=== PATIENT | female | born 1945 | race Caucasian/White ===

== ENCOUNTER → 2016-08-30 | Day surgery (SDC) | payer MEDICARE, BC ==
[~2016-08-30] VITALS: Ht 162.6 cm; Wt 68.9 kg
[~2016-08-30] MED LIST: ACETAMINOPHEN 325 MG TAB PO PRN; ACETAMINOPHEN TAB 650MG DOSE (2X325MG) PO PRN; ACETYLCHOLINE OPHTH SOLN 1% 2ML As Ordered ONE; ANUS2.5C2 PR; AcetaZOLAMIDE 500 MG ER CAP PO ONE; BALANCED SALT IRRIGATION SOLUTION 500ML BAG (FOR OR EYE MACHINE) As Ordered ONE; BSS with VANC/TOB/EPI for EYE CASES IR ONE; CEFUROXIME 1MG/0.1ML INTRACAMERAL INJ As Ordered ONE; CYCLOPENTOLATE 2% OPHTH SOLN As Ordered ONE; CYCLOPENTOLATE 2% OPHTH SOLN OD ONE; D5W/0.2% SODIUM CHLORIDE 250 ML IV SCH; D5W/0.9% SODIUM CHLORIDE 1,000 ML IV SCH; DRIS50002 PO; HEALON DUET (HEALON 10MG/ML 0.55ML & HEALON ENDOCOAT 30MG/ML 0.85ML) As Ordered ONE; KETOROLAC 0.5% OPHTH SOLN XX ONE; LIDOCAINE 1% SDV 5 ML VIAL As Ordered ONE; LIDOCAINE 4% INJ 5 ML AMP OU ONE; LISI-538 PO; LISI10TA2 PO; MIDAZOLAM INJ 2 MG/2 ML VIAL (J2250) As Ordered ONE; OFLOXACIN 0.3 % (OCUFLOX) OPTH SOL 5ML As Ordered ONE; OFLOXACIN 0.3 % (OCUFLOX) OPTH SOL 5ML OD ONE; ONDANSETRON 4MG/2ML VIAL (J2405) IV PRN; PHENYLEPHRINE 2.5% OPHTH SOL 2ML As Ordered ONE; PHENYLEPHRINE 2.5% OPHTH SOL 2ML OD ONE; POVIDONE-IODINE 5% OPHTH PREP SOL 30ML As Ordered ONE; PRAV40TA2 PO; PREV10CA PO; PROPARACAINE 0.5% OPHTH SOL 15ML XX PRN; TRIMETHOBENZAMIDE 300 MG CAP PO PRN; TROPICAMIDE 1% OPHTH SOLN 2 ML As Ordered ONE; TROPICAMIDE 1% OPHTH SOLN 2 ML OD ONE; VITA-121 PO; VITA200T4 PO; fentaNYL 100 MCG/2 ML INJECTION (J3010) As Ordered ONE
[2016-08-30 11:10] VITALS: BP 136/74
--- NOTE | 2016-08-31 07:53 | RO ---
DATE OF PROCEDURE: 08/30/2016 PREOPERATIVE DIAGNOSIS: Age-related nuclear cataract right eye. POSTPROCEDURE DIAGNOSIS: Age-related nuclear cataract right eye. PROCEDURE: Phacoemulsification and posterior chamber intraocular lens implantation. Lens used is a AU00T0 13.0 diopter. SURGEON: Elaine Roach MD SOLE LEATHER CUTTING MACHINE OPERATOR: ANESTHESIA: Topical with sedation. DESCRIPTION OF PROCEDURE: The patient was prepped and draped in the usual fashion. A lid speculum was placed between the lids. The eye was fixated. A stab incision was made to the anterior chamber, and 1% nonpreserved Lidocaine was instilled. Then, viscoelastic was instilled. The eye was refixated. A 2.75 mm sapphire keratome was used to make a clear corneal temporal limbal incision. Capsulorrhexis was begun with a 30-gauge bent needle and then carried out in a circular fashion with capsulorrhexis forceps. The lens was hydrodissected, and then the phacoemulsification unit was used to make a groove in the nucleus and two meridians. The nucleus was then cracked into four quadrants. Each quadrant was removed with the phacoemulsification unit. Any remaining cortex was removed with the I+A unit. Capsular bag was refilled with viscoelastic. A posterior chamber intraocular lens was placed in the capsular bag without difficulty. Any remaining viscoelastic was removed with the I+A unit. The wound was hydrated, and Miochol and cefuroxime were instilled into the anterior chamber. The patient tolerated the procedure well and went to the recovery room in stable condition.
== END | disposition home or self-care (01) ==
LOC: M SDC 09:39
PROVIDERS: ATTEND Ophthalmology
DX: H25.11 Age-related nuclear cataract, right eye (principal); I10 Essential (primary) hypertension; E78.5 Hyperlipidemia, unspecified; Z79.899 Other long term (current) drug therapy
CPT/HCPCS: 66984; J2250; J3010; V2632

== ENCOUNTER → 2016-09-06 | Day surgery (SDC) | payer MEDICARE, BC ==
[~2016-09-06] VITALS: Ht 162.6 cm; Wt 68.9 kg
[~2016-09-06] MED LIST changes: -ACETAMINOPHEN TAB 650MG DOSE (2X325MG) PO PRN; -BSS with VANC/TOB/EPI for EYE CASES IR ONE; -CYCLOPENTOLATE 2% OPHTH SOLN As Ordered ONE; -CYCLOPENTOLATE 2% OPHTH SOLN OD ONE; +CYCLOPENTOLATE 2% OPHTH SOLN OS ONE; -D5W/0.9% SODIUM CHLORIDE 1,000 ML IV SCH; +KETOROLAC 0.5% OPHTH SOLN OS ONE; -KETOROLAC 0.5% OPHTH SOLN XX ONE; +LR 1,000 ML IV SCH; -OFLOXACIN 0.3 % (OCUFLOX) OPTH SOL 5ML As Ordered ONE; -OFLOXACIN 0.3 % (OCUFLOX) OPTH SOL 5ML OD ONE; +OFLOXACIN 0.3 % (OCUFLOX) OPTH SOL 5ML OS ONE; -ONDANSETRON 4MG/2ML VIAL (J2405) IV PRN; -PHENYLEPHRINE 2.5% OPHTH SOL 2ML As Ordered ONE; -PHENYLEPHRINE 2.5% OPHTH SOL 2ML OD ONE; +PHENYLEPHRINE 2.5% OPHTH SOL 2ML OS ONE; +PROPARACAINE 0.5% OPHTH SOL 15ML OS PRN; -PROPARACAINE 0.5% OPHTH SOL 15ML XX PRN; -TROPICAMIDE 1% OPHTH SOLN 2 ML As Ordered ONE; -TROPICAMIDE 1% OPHTH SOLN 2 ML OD ONE; +TROPICAMIDE 1% OPHTH SOLN 2 ML OS ONE
[2016-09-06 11:00] VITALS: BP 135/73
--- NOTE | 2016-09-06 16:47 | RO ---
DATE OF PROCEDURE: 09/06/2016 PREPROCEDURE DIAGNOSIS: Age-related nuclear cataract left eye. POSTPROCEDURE DIAGNOSIS: Age-related nuclear cataract left eye. OPERATIVE PROCEDURE: Phacoemulsification and posterior chamber intraocular lens implantation left eye. The lens used was AU00-T0, 12.0 diopter. SURGEON: Elaine Roach MD DEBURRER MACHINE: ANESTHESIA: Topical with sedation. DESCRIPTION OF PROCEDURE: The patient was prepped and draped in the usual fashion. A lid speculum was placed between the lids. The eye was fixated. A stab incision was made to the anterior chamber, and 1% non-preserved lidocaine was instilled. Then, viscoelastic was instilled. The eye was re-fixated. A 2.75 mm sapphire keratome was used to make a clear corneal temporal limbal incision. Capsulorrhexis was begun with a 30-gauge bent needle and then carried out in a circular fashion with capsulorrhexis forceps. The lens was hydrodissected, and then the phacoemulsification unit was used to make a groove in the nucleus in two meridians. The nucleus was then cracked into four quadrants. Each quadrant was removed with the phacoemulsification unit. Any remaining cortex was removed with the irrigation and aspiration (I and A) unit. Capsular bag was refilled with viscoelastic. A posterior chamber intraocular lens was placed in the capsular bag without difficulty. Any remaining viscoelastic was removed with the I and A unit. The wound was hydrated, and Miochol and cefuroxime were instilled into the anterior chamber. The patient tolerated the procedure well and went to the recovery room in stable condition.
== END | disposition home or self-care (01) ==
LOC: M SDC 08:54
PROVIDERS: ATTEND Ophthalmology
DX: H25.12 Age-related nuclear cataract, left eye (principal); I10 Essential (primary) hypertension; E78.5 Hyperlipidemia, unspecified; Z79.899 Other long term (current) drug therapy
CPT/HCPCS: 66984; J2250; J3010; V2632

== ENCOUNTER → 2016-10-23 | Outpatient (REF) | payer MEDICARE, BC ==
[~2016-10-23] MED LIST changes: -ACETAMINOPHEN 325 MG TAB PO PRN; -ACETYLCHOLINE OPHTH SOLN 1% 2ML As Ordered ONE; -AcetaZOLAMIDE 500 MG ER CAP PO ONE; -BALANCED SALT IRRIGATION SOLUTION 500ML BAG (FOR OR EYE MACHINE) As Ordered ONE; -CEFUROXIME 1MG/0.1ML INTRACAMERAL INJ As Ordered ONE; -CYCLOPENTOLATE 2% OPHTH SOLN OS ONE; -D5W/0.2% SODIUM CHLORIDE 250 ML IV SCH; -HEALON DUET (HEALON 10MG/ML 0.55ML & HEALON ENDOCOAT 30MG/ML 0.85ML) As Ordered ONE; -KETOROLAC 0.5% OPHTH SOLN OS ONE; -LIDOCAINE 1% SDV 5 ML VIAL As Ordered ONE; -LIDOCAINE 4% INJ 5 ML AMP OU ONE; -LR 1,000 ML IV SCH; -MIDAZOLAM INJ 2 MG/2 ML VIAL (J2250) As Ordered ONE; -OFLOXACIN 0.3 % (OCUFLOX) OPTH SOL 5ML OS ONE; -PHENYLEPHRINE 2.5% OPHTH SOL 2ML OS ONE; -POVIDONE-IODINE 5% OPHTH PREP SOL 30ML As Ordered ONE; -PROPARACAINE 0.5% OPHTH SOL 15ML OS PRN; -TRIMETHOBENZAMIDE 300 MG CAP PO PRN; -TROPICAMIDE 1% OPHTH SOLN 2 ML OS ONE; -fentaNYL 100 MCG/2 ML INJECTION (J3010) As Ordered ONE
[2016-10-23 11:59] LABS: MEAN CORPUSCULAR HEMOGLOBIN 29.3 pg (27.0-33.0); MEAN CORPUSCULAR HGB CONC 32.5 g/dl (32.0-36.5); WHITE BLOOD COUNT 5.1 K/mm3 (4.0-10.0)
[2016-10-23 12:17] LABS: ALBUMIN 3.9 GM/DL (3.2-5.2); ALKALINE PHOSPHATASE 63 U/L (45-117); ALT/SGPT 22 U/L (12-78); ANION GAP 6 MEQ/L (8-16); AST/SGOT 17 U/L (15-37); BILIRUBIN,TOTAL 0.5 MG/DL (0.2-1.0); BLOOD UREA NITROGEN 19 MG/DL (7-18); CALCIUM LEVEL 8.3 MG/DL (8.8-10.2); CARBON DIOXIDE LEVEL 31 MEQ/L (21-32); CHLORIDE LEVEL 106 MEQ/L (98-107); CHOLESTEROL LEVEL 221 MG/DL (<200); GLOMERULAR FILTRATION RATE > 60.0 (>45); GLUCOSE, FASTING 94 MG/DL (80-110); POTASSIUM SERUM 3.9 MEQ/L (3.5-5.1); SODIUM LEVEL 143 MEQ/L (136-145); TOTAL PROTEIN 6.9 GM/DL (6.4-8.2); TRIGLYCERIDES LEVEL 125 MG/DL (<150)
== END ==
LOC: M SFHCCLAY 08:29
PROVIDERS: ATTEND Nurse Practitioner Family
DX: I10 Essential (primary) hypertension (principal); E78.4 Other hyperlipidemia; E55.9 Vitamin D deficiency, unspecified

== ENCOUNTER → 2017-04-09 | Outpatient (REF) | payer MEDICARE, BC ==
[2017-04-09 12:43] LABS: CALCIUM LEVEL 8.6 MG/DL (8.8-10.2)
== END ==
LOC: M SFHCCLAY 09:02
PROVIDERS: ATTEND Nurse Practitioner Family
DX: E55.9 Vitamin D deficiency, unspecified (principal); I10 Essential (primary) hypertension; E78.4 Other hyperlipidemia

== ENCOUNTER → 2018-03-29 | Outpatient (CLI) | payer MEDICARE, BC | LOC: M CLY 10:28 | DX: R05 Cough (principal) | CPT/HCPCS: 71046 ==

== ENCOUNTER → 2018-07-24 | Outpatient (REF) | payer MEDICARE, BC ==
[~2018-07-24] MED LIST changes: -DRIS50002 PO; +DRIS50003 PO
[2018-07-24 11:40] LABS: HEMATOCRIT 34.6 % (36.0-47.0); HEMOGLOBIN 10.8 g/dl (12.0-15.5); MEAN CORPUSCULAR HEMOGLOBIN 26.7 pg (27.0-33.0); MEAN CORPUSCULAR HGB CONC 31.2 g/dl (32.0-36.5); MEAN CORPUSCULAR VOLUME 85.6 fl (80.0-96.0); PLATELET COUNT, AUTOMATED 288 10^3/uL (150-450); RED BLOOD COUNT 4.04 10^6/uL (4.00-5.40); WHITE BLOOD COUNT 5.3 10^3/uL (4.0-10.0)
[2018-07-24 11:48] LABS: ALBUMIN 3.9 GM/DL (3.2-5.2); ALT/SGPT 18 U/L (12-78); BILIRUBIN,TOTAL 0.2 MG/DL (0.2-1.0); BLOOD UREA NITROGEN 16 MG/DL (7-18); CALCIUM LEVEL 8.4 MG/DL (8.8-10.2); CARBON DIOXIDE LEVEL 28 MEQ/L (21-32); CHLORIDE LEVEL 109 MEQ/L (98-107); CHOLESTEROL LEVEL 248 MG/DL (<200); CHOLESTEROL RISK RATIO 4.133 (<5); CREATININE FOR GFR 0.82 MG/DL (0.55-1.30); GLOMERULAR FILTRATION RATE > 60.0 (>39); GLUCOSE, FASTING 97 MG/DL (70-100); HDL CHOLESTEROL 60 MG/DL (>40); LDL CHOLESTEROL 160 MG/DL (<100); NON-HDL-C 188 MG/DL; POTASSIUM SERUM 3.9 MEQ/L (3.5-5.1); SODIUM LEVEL 144 MEQ/L (136-145); TOTAL PROTEIN 6.7 GM/DL (6.4-8.2); TRIGLYCERIDES LEVEL 138 MG/DL (<150)
[2018-07-24 11:56] LABS: TOTAL 25(OH) VITAMIN D 21.1 NG/ML (30.0-100.0)
== END ==
LOC: M SFHCCLAY 08:25
PROVIDERS: ATTEND Nurse Practitioner Family
DX: I10 Essential (primary) hypertension (principal); E78.49 Other hyperlipidemia; E55.9 Vitamin D deficiency, unspecified; Z79.899 Other long term (current) drug therapy

== ENCOUNTER → 2018-09-19 | Outpatient (REF) | payer MEDICARE, BC | LOC: M SFHCWAGY 14:06 | PROVIDERS: ATTEND Nurse Practitioner Family | DX: Z12.4 Encounter for screening for malignant neoplasm of cervix (principal) ==

== ENCOUNTER → 2018-09-24 | Outpatient (CLI) | payer MEDICARE, BC ==
[~2018-09-24] MED LIST changes: +E-Z-GAS II EFFERVESCENT PACKET (SODIUM BICARB./CITRIC ACID/SIMETHICONE) As Ordered ONE; +E-Z-HD 98% w/w 340GM SUSP BTL As Ordered ONE; +E-Z-PAQUE 96% w/w SUSP 176GM BTL As Ordered ONE
--- NOTE | 2018-09-24 20:28 | REP ---
Esophagram The procedure was performed under the direct supervision of Dr. Yanez. The images were reviewed with Dr. Yanez. A single view PA chest x-ray is submitted as a weatherization coordinator film. The superior mediastinal structures are midline. The heart size is within normal limits. The lungs are clear. Liquid barium and gas producing granules were given in the erect position as well as liquid barium in the prone oblique positions in order to perform a double contrast esophagram examination. The oral and pharyngeal stages of deglutition are unremarkable. Note is made of degenerative disc disease in the cervical spine. During esophageal transport there are tertiary waves demonstrated. There is no esophagitis stricture mucosal ring or hiatal hernia. There is gastroesophageal reflux demonstrated to above the level of the basilio. Impression: There are tertiary waves demonstrated. There is gastroesophageal reflux demonstrated to above the level of the basilio. 0.6 minutes of fluoro time was utilized for this procedure. Reviewed by PAIGE Barrett 09/24/2018 03:49 P Electronically Signed by Eulalio Yanez MD 09/24/2018 08:19 P
== END ==
LOC: M RAD 08:33
PROVIDERS: ATTEND Otolaryngology
DX: R05 Cough (principal)

== ENCOUNTER → 2018-10-10 | Outpatient (CLI) | payer MEDICARE, BC ==
[~2018-10-10] MED LIST changes: -E-Z-GAS II EFFERVESCENT PACKET (SODIUM BICARB./CITRIC ACID/SIMETHICONE) As Ordered ONE; -E-Z-HD 98% w/w 340GM SUSP BTL As Ordered ONE; -E-Z-PAQUE 96% w/w SUSP 176GM BTL As Ordered ONE
--- NOTE | 2018-10-10 13:36 | REPMRS ---
Patient History The patient states she has not had a clinical breast exam in over a year. Patient is postmenopausal and had first child at age 42. Family history of unknown cancer in brother. Benign excisional biopsy of the left breast, 2002. Reductions of both breasts, 1997. 3D TOMOSYNTHESIS WAS PERFORMED. Digital Woman Screen Mammo: October 10, 2018 - Exam #: [id number] Bilateral CC and MLO view(s) were taken. Technologist: Sera Gomez, Technologist Prior study comparison: March 15, 2016, bilateral digital mammo screening bilat, performed at [facility]. January 01, 2013, digital woman screen mammo performed at [facility]. FINDINGS: The breast tissue is heterogeneously dense. This may lower the sensitivity of mammography. There has been no change in the appearance of the mammogram from the prior studies. There is a moderate amount of residual fibroglandular tissue which is fairly symmetric. There is no interval development of dominant mass, areas of architectural distortion, or clustered microcalcification typical of malignancy. Assessment: BI-RADS/ACR category 1 mammogram. Negative Mammogram. Recommendation Routine screening mammogram in 1 year (for women over age 40). This mammogram was interpreted with the aid of an FDA-approved computer-aided dectection system. Electronically Signed By: Tommy Juan MD 10/10/18 [id number]
== END ==
LOC: M WHC 12:29
PROVIDERS: ATTEND Nurse Practitioner Family
DX: Z12.31 Encounter for screening mammogram for malignant neoplasm of breast (principal); Z78.0 Asymptomatic menopausal state; Z80.9 Family history of malignant neoplasm, unspecified

== ENCOUNTER 2019-01-17 10:22 | Day surgery (SDC) | payer MEDICARE, BC ==
[~2019-01-17] VITALS: Ht 167.6 cm; Wt 81.1 kg
[~2019-01-17 10:22] MED LIST changes: +B-122500 PO; +IRON27TA2 PO; +LISI10TA15 PO; -LISI10TA2 PO; +NS 1,000 ML IV ONE; +OMEP40CA97 PO; +TYLETAB14 PO
[2019-01-17] MEDS ORDERED: LIDOCAINE 2% INJ 100 MG/5 ML SDV (FOR ANES.) As Ordered ONE (10:37)
[2019-01-17] MEDS ORDERED: propofoL 200 MG/20 ML VIAL As Ordered ONE (10:37)
[2019-01-17] MEDS ORDERED: fentaNYL 100 MCG/2 ML INJECTION (J3010) As Ordered ONE (11:43)
--- NOTE | 2019-01-17 11:59 | ROOR ---
Patient Name: Lazara Disla Procedure Date: 01/17/2019 11:44 AM Date of : 1945 Age: 73 Room: [facility] Gender: Female Note Status: Finalized Procedure: Upper GI endoscopy Indications: Exclusion of esophageal reflux, Chronic cough Providers: Yoel BREEN MD Referring MD: Mag Das NP Requesting Provider: Medicines: Monitored Anesthesia Care Complications: No immediate complications. Procedure: Pre-Anesthesia Assessment: - The heart rate, respiratory rate, oxygen saturations, blood pressure, adequacy of pulmonary ventilation, and response to care were monitored throughout the procedure. The Endoscope was introduced through the mouth, and advanced to the second part of duodenum. The upper GI endoscopy was accomplished without difficulty. The patient tolerated the procedure well. Findings: The examined esophagus was normal. The entire examined stomach was normal. The examined duodenum was normal. The DOTY capsule with delivery system was introduced through the mouth and advanced into the esophagus, such that the DOTY pH capsule was positioned 34 cm from the incisors, which was 6 cm proximal to the GE junction. The DOTY pH capsule was then deployed and attached to the esophageal mucosa. The delivery system was then withdrawn. Endoscopy was utilized for probe placement and diagnostic evaluation. The scope was reinserted to evaluate placement of the DOTY capsule. Visualization showed the DOTY capsule to be in an appropriate position. Impression: - Normal esophagus. - Normal stomach. - Normal examined duodenum. - The DOTY pH capsule was deployed. - No specimens collected. Recommendation: - Doty pH testing: OFF PPI meds. - Instructions: Avoid all reflux medications for next 48 hrs. (i.e. Avoid all the following for the next 48 hours: Prilosec/Omeprazole, Nexium, Prevacid/Lansoprazole, Dexilant, Zegerid/Omeprazole, Aciphex/Rabeprazole, Protonix/Pantoprazole, Zantac/Ranitidine, Pepcid/Famotidine, Tagamet). You may take tums, rolaids or maalox for severe symptoms, but try to limit this as well. Do not try to avoid your usual triggers for your symptoms for next 48 hrs. (If you have known "triggers" for your symptoms such as caffeine, fatty foods, laying down after meals etc, it is actually encouraged that you do try to produce your symptoms as much as possible over next 48 hrs.) - Telephone endoscopist for study results in 2 weeks. Yoel Breen MD Yoel BREEN MD 01/17/2019 11:59:15 AM Electronically signed by Yoel BREEN MD Number of Addenda: 0 Note Initiated On: 01/17/2019 11:44 AM Estimated Blood Loss: Estimated blood loss: none.
[2019-01-17 12:25] VITALS: BP 172/85
== END 2019-01-17 12:37 | disposition home or self-care (01) ==
LOC: M OPP 10:22
PROVIDERS: ATTEND Internal Medicine Gastroenterology
DX: R05 Cough (principal)
CPT/HCPCS: 43235; 91035; J3010

== ENCOUNTER → 2019-03-18 | Outpatient (REF) | payer MEDICARE, BC ==
[~2019-03-18] MED LIST changes: -NS 1,000 ML IV ONE
[2019-03-18 14:11] LABS: BASO # 0.1 10^3/uL (0.0-0.2); BASO % 0.9 % (0.0-1.0); EOS # 0.2 10^3/uL (0.0-0.5); EOS % 4.1 % (0.0-3.0); HEMATOCRIT 39.6 % (36.0-47.0); HEMOGLOBIN 12.7 g/dl (12.0-15.5); LYMPH # 1.7 10^3/uL (1.5-5.0); LYMPH % 31.6 % (24.0-44.0); MEAN CORPUSCULAR HEMOGLOBIN 30.2 pg (27.0-33.0); MEAN CORPUSCULAR HGB CONC 32.1 g/dl (32.0-36.5); MEAN CORPUSCULAR VOLUME 94.1 fl (80.0-96.0); MONO # 0.4 10^3/uL (0.0-0.8); MONO % 7.7 % (0.0-5.0); NEUTROPHILS % 55.5 % (36.0-66.0); PLATELET COUNT, AUTOMATED 258 10^3/uL (150-450); RED BLOOD COUNT 4.21 10^6/uL (4.00-5.40); WHITE BLOOD COUNT 5.4 10^3/uL (4.0-10.0)
[2019-03-18 14:16] LABS: ALBUMIN 3.8 GM/DL (3.2-5.2); ALT/SGPT 20 U/L (12-78); BILIRUBIN,TOTAL 0.6 MG/DL (0.2-1.0); BLOOD UREA NITROGEN 29 MG/DL (7-18); CALCIUM LEVEL 9.3 MG/DL (8.8-10.2); CARBON DIOXIDE LEVEL 31 MEQ/L (21-32); CHLORIDE LEVEL 107 MEQ/L (98-107); CREATININE FOR GFR 1.76 MG/DL (0.55-1.30); GLOMERULAR FILTRATION RATE 30.3 (>39); GLUCOSE, FASTING 91 MG/DL (70-100); POTASSIUM SERUM 3.7 MEQ/L (3.5-5.1); RHEUMATOID FACTOR QUANT < 10.0 IU/ML (<15.0); SODIUM LEVEL 144 MEQ/L (136-145); THYROID STIMULATING HORMONE 0.883 uIU/ML (0.358-3.740); TOTAL PROTEIN 6.8 GM/DL (6.4-8.2)
[2019-03-18 14:17] LABS: FOLATE 12.8 NG/ML; VITAMIN B12 LEVEL 1565 PG/ML
[2019-03-18 14:59] LABS: ERYTHROCYTE SEDIMENTATION RATE 27 mm/hr (0-30)
[2019-03-20 12:37] LABS: ALBUMIN 4.05 GM/DL (3.29-5.55); ALBUMIN % 59.6 % (55.8-66.1); ALPHA-1-GLOBULIN % 5.6 % (2.9-4.9); ALPHA-1-GLOBULINS 0.38 GM/DL (0.17-0.41); ALPHA-2-GLOBULINS 0.97 GM/DL (0.42-0.99); ALPHA-2-GLOBULINS % 14.2 % (7.1-11.8); BETA-1-GLOBULINS 0.41 GM/DL (0.28-0.60); BETA-2-GLOBULINS 0.35 GM/DL (0.19-0.55); BETA-2-GLOBULINS % 5.1 % (3.2-6.5); GAMMA GLOBULIN % 9.5 % (11.1-18.8); GAMMA GLOBULINS 0.65 GM/DL (0.65-1.58)
[2019-03-22 08:06] LABS: ANTINUCLEAR ANTIBODIES DIRECT Negative (Negative); VITAMIN B1 LEVEL WHOLE BLOOD 91.3 nmol/L (66.5-200.0); VITAMIN B6,PYRIDOXAL PHOSPHATE 5.3 ug/L (2.0-32.8); VITAMIN E(ALPHA TOCOPHEROL) 13.8 mg/L (9.0-29.0); VITAMIN E(GAMMA TOCOPHEROL) 1.3 mg/L (0.5-4.9)
== END ==
LOC: M LABNEURO 09:36
PROVIDERS: ATTEND Psychiatry & Neurology Neurology
DX: G25.69 Other tics of organic origin (principal)

== ENCOUNTER → 2019-03-24 | Outpatient (REF) | payer MEDICARE, BC ==
[2019-03-24 18:28] LABS: CALCIUM LEVEL 9.6 MG/DL (8.8-10.2); CHOLESTEROL RISK RATIO 2.685 (<5)
[2019-03-24 18:35] LABS: TOTAL 25(OH) VITAMIN D 131.8 NG/ML (30.0-100.0)
== END ==
LOC: M SFHCCLAY 11:28
PROVIDERS: ATTEND Nurse Practitioner Family
DX: E55.9 Vitamin D deficiency, unspecified (principal); S40.812A Abrasion of left upper arm, initial encounter; E78.49 Other hyperlipidemia; Z79.899 Other long term (current) drug therapy

== ENCOUNTER → 2021-07-28 | Outpatient (REF) | payer MEDICARE, BC ==
[~2021-07-28] MED LIST changes: -LISI-538 PO; -LISI10TA15 PO; +LISI10TA24 PO; +LISI20TA33 PO; +OMEP40CA4 PO; -OMEP40CA97 PO
[2021-07-28 16:10] LABS: APPEARANCE, URINE HAZY (CLEAR); BACTERIA, URINE AUTO 1+ (NEGATIVE); BILIRUBIN, URINE AUTO NEGATIVE (NEGATIVE); BLOOD, URINE BLOOD 3+ (NEGATIVE); CALCIUM OXALATE CRYSTALS SMALL; COLOR, URINE YELLOW (YELLOW); GLUCOSE, URINE (UA) AUTO NEGATIVE (NEGATIVE); KETONE, URINE AUTO NEGATIVE (NEGATIVE); LEUKOCYTE ESTERASE, URINE AUTO 2+ (NEGATIVE); MUCUS, URINE SMALL (NEGATIVE); NITRITE, URINE AUTO NEGATIVE (NEGATIVE); PROTEIN, URINE AUTO NEGATIVE (NEGATIVE); RBC, URINE AUTO 175 /HPF (0-3); SPECIFIC GRAVITY URINE AUTO 1.009 (1.002-1.035); SQUAMOUS EPITHELIAL CELL UR AU 1 /HPF (0-6); UROBILINOGEN, URINE AUTO 0.2 mg/dL (0.0-2.0); WBC, URINE AUTO 12 /HPF (0-3)
== END ==
LOC: M SFHCCLAY 15:34
PROVIDERS: ATTEND Nurse Practitioner Family
DX: R39.9 Unspecified symptoms and signs involving the genitourinary system (principal)